=== PATIENT | female | born 1985 ===

== ENCOUNTER 2022-09-22 10:11 | Outpatient (REF) | payer OTHER, SELFPAY ==
[2022-09-22 10:21] LABS: MANUAL DIFF FLAG NO
[2022-09-22 10:56] LABS: Basophils Absolute Auto 0.1 X10*3/uL (0.0-0.2); Basophils Percent Auto 0.6 % (0-2); Eosinophils Absolute Auto 0.2 X10*3/uL (0.0-0.4); Eosinophils Percent Auto 2.3 % (0-4); Hematocrit 41.6 % (37.0-47.0); Imm Gran Abs Auto 0.03 X10*3/uL (0.00-0.03); Imm Gran Pct Auto 0.3 % (0.0-0.4); Lymphocytes Absolute Auto 2.1 X10*3/uL (1.2-4.9); Lymphocytes Percent Auto 21.3 % (20-40); Mean Corpuscular HGB Conc 31.3 g/dl (31.0-35.0); Mean Corpuscular Hemoglobin 27.2 pg (27.0-33.0); Mean Platelet Volume 10.3 fL (9.4-12.3); Monocytes Absolute Auto 0.6 X10*3/uL (0.1-1.2); Monocytes Percent Auto 6.4 % (2-11); Neutrophils Absolute Auto 6.7 x10*3/uL (2.0-8.3); Neutrophils Percent Auto 69.1 % (45-73); Platelet Count 274 X10*3/uL (160-400); Red Blood Count 4.78 X10*6/uL (4.20-5.50); Red Cell Distribution Width 13.9 % (11.0-16.0); White Blood Count 9.6 X10*3/uL (4.8-10.8)
[2022-09-22 12:35] LABS: Alanine Aminotransferase 34 U/L (0-31); Albumin Level 3.9 g/dL (3.5-5.0); Alkaline Phosphatase 65 U/L (39-117); Anion Gap 13 (12-20); Aspartate Amino Transferase 19 U/L (5-31); Bilirubin Total 0.7 mg/dL (0.0-1.0); Blood Urea Nitrogen 7 mg/dL (9-16); Calcium 8.9 mg/dL (8.4-10.2); Carbon Dioxide 24 mmol/L (22-29); Chloride 106 mmol/L (96-108); Cholesterol 193 mg/dL; Estimated Glomerular Filt Rate > 60; Glucose Random 110 mg/dL (60-115); HDL Cholesterol 48 mg/dL; LDL Cholesterol Calculated 126 mg/dl; Potassium 4.4 mmol/L (3.3-5.1); Sodium 139 mmol/L (135-145); TSH reflex Free T4 1.19 uIU/mL (0.32-4.0); Total Protein 6.6 g/dL (6.5-8.0); Triglycerides 95 mg/dL; Vitamin D 25-OH Total 33.9 ng/mL (>30)
== END 2022-09-22 10:12 | disposition home or self-care (01) ==
LOC: HO.LAB 10:11
PROVIDERS: PCP Nurse Practitioner Family; Visit Provider Nurse Practitioner Family
DX: Z13.0 Encounter for screening for diseases of the blood and blood-forming organs and certain disorders involving the immune mechanism (principal); Z13.1 Encounter for screening for diabetes mellitus; Z13.220 Encounter for screening for lipoid disorders; Z13.29 Encounter for screening for other suspected endocrine disorder; Z13.21 Encounter for screening for nutritional disorder
CPT/HCPCS: 36415; 80053; 80061; 82306; 84443; 85025

== ENCOUNTER 2022-10-08 07:44 | Outpatient (REF) | payer OTHER, SELFPAY ==
--- NOTE | ~2022-10-08 | CT_ITS ---
EXAMINATION: CT ANGIOGRAM HEAD CLINICAL INFORMATION: History of ischemic heart disease and aneurysms, headaches COMPARISON: None. TECHNIQUE: Test bolus sequences followed by intravenous administration 75 mL of Omnipaque 350. Helical imaging was performed in the axial plane from the skull base to the skull vertex. Delayed postcontrast imaging of the head was also performed. The data was processed at the pulmonary function technologist's workstation for generation of MIP sequences. Three-dimensional volume rendered reformatted images were also generated at an offline 3-D workstation. This CT examination was performed using dose optimization techniques as appropriate, variously including the following: *Automated exposure control *Adjustment of mA and/or kV according to patient size (this includes techniques or standardized protocols for targeted exams where dose is matched to indication/reason for exam; i.e. extremities or head) *Use of iterative reconstruction technique DLP: 3078 mGy-cm. FINDINGS: CT HEAD: The ventricles and sulci are normal in size and configuration without significant volume loss or hydrocephalus. There is no abnormal attenuation within the brain parenchyma. No territorial loss of ochoa-white differentiation. No acute intracranial hemorrhage or extra-axial fluid collection. No mass lesion, significant mass effect, or herniation pattern. No pathologic intra-axial enhancement or regional oligemia. The orbits are grossly normal. Paranasal sinuses and mastoid air cells are well aerated. Osseous structures are intact. Small volume adenoidal tonsillar tissue. Accessory parotid glandular tissue extends superficial to the masseter muscles bilaterally. CTA HEAD: Technically limited evaluation of the intracranial vasculature related to suboptimal contrast bolus with apparent diffuse luminal irregularity probably on a technical basis. No proximal large vessel occlusion or hemodynamically significant stenosis. Query 1.5 mm infundibular origin versus small aneurysm at the the left frontopolar artery origin arising from the distal left A2 ROSA. Timing of the contrast bolus allows assessment of the major dural venous sinuses, which all opacify normally. Asymmetric prominence and enhancement of the left angular vein with draining diploic vein traversing the right frontal calvarium emptying into the superior sagittal sinus. There may be an arterial feeder from the left superior temporal artery versus prominent superior temporal vein. Arteriovenous shunting lesion is not excluded and further evaluation with pqsq-gg-gjignh and contrast-enhanced head and neck MRA is recommended. CT/CT angio head IMPRESSION: 1. No acute intracranial abnormality. 2. Technically limited evaluation of the intracranial vasculature related to suboptimal contrast bolus with apparent diffuse luminal irregularity probably on a technical basis. 3. Query 1.5 mm infundibular origin versus small aneurysm at the the left frontopolar artery origin arising from the distal left A2 ROSA. 4. Asymmetric prominence and enhancement of the left angular vein with draining diploic vein emptying into the superior sagittal sinus. There may be an arterial feeder from the left superior temporal artery versus prominent superior temporal vein. Arteriovenous shunting lesion is not excluded and could be further assessed with [id number]-[id number] and contrast-enhanced head and neck MRA.
[2022-10-08] MEDS: iohexoL 350 MG/ML 75 ML INFUS..BTL IV (08:42)
== END 2022-10-08 07:45 | disposition home or self-care (01) ==
LOC: HO.CT 07:44
PROVIDERS: PCP Nurse Practitioner Family; Visit Provider Nurse Practitioner Family
DX: I67.1 Cerebral aneurysm, nonruptured (principal); Z82.49 Family history of ischemic heart disease and other diseases of the circulatory system
CPT/HCPCS: 70496; Q9967

== ENCOUNTER 2022-11-18 16:25 | Outpatient (REF) | payer OTHER, SELFPAY ==
--- NOTE | ~2022-11-18 | MR_ITS ---
EXAMINATION MRA HEAD WITHOUT AND WITH CONTRAST MRA NECK WITH AND WITHOUT CONTRAST CLINICAL INFORMATION: Family history ischemic heart disease. Query 1.5 mm infundibulum origin versus small aneurysm at the left frontopolar artery, and asymmetric prominence of the left angular vein COMPARISON: CTA of the head 10/08/2022. TECHNIQUE: 3D pvdy-ew-pfelzg MR angiography was performed through the brain and axial source images were reviewed along with rotating MIPs. Subsequently, 2-D pvif-qr-reykkj and bolus IV enhanced MR angiography was performed through the cervicocerebral vasculature. The degree of stenosis is based off NASCET criteria. Source images were reviewed along with MIPs. Angled MIPs and volumetric reconstructions were independently generated and archived by the 3D laboratory. A total of 10 ml of intravenous Gadavist was utilized for the examination. FINDINGS: MRA NECK: There is a classic configuration of the aortic arch. The proximal arch vessels are nonstenotic. The left vertebral artery is dominant and both vertebral arteries are widely patent from their ostia until they garrett the dura. The common and internal carotid arteries are normal in course and caliber. MRA HEAD: There is mild asymmetric prominence of the angular vein on the left, but there is no evidence of arterialized flow, and this may be consistent with aberrant venous drainage. The intracranial internal carotid arteries and their bifurcations appear normal. The equivocal fullness on the CTA at the origin of the left frontopolar artery most is most likely consistent with a small infundibulum (image 160/168, sequence 3 and image 149/168, sequence 9). No definite discrete aneurysm is demonstrated. The middle and anterior cerebral arteries bilaterally demonstrate normal caliber with no evidence of focal stenosis, aneurysm or vascular malformation. There is normal arborization of the middle cerebral artery branches. The anterior communicating artery is normal. In the posterior circulation, the left vertebral artery is dominant. The vertebral arteries intradurally have normal caliber. The basilar artery appears normal. The posterior cerebral arteries have normal caliber. MR/MR angio head wo/w con IMPRESSION: 1. The study demonstrates a prominent angular vein on the left, but there is no evidence of arterialization, and this is most consistent with asymmetric, aberrant venous drainage. 2. No definite discrete aneurysm is seen in the left frontopolar branches of the left anterior cerebral artery, and the findings are most consistent with a small infundibulum. 3. No focal stenoses, aneurysms or vascular malformations are demonstrated elsewhere.
--- NOTE | ~2022-11-18 | MR_ITS ---
EXAMINATION MRA HEAD WITHOUT AND WITH CONTRAST MRA NECK WITH AND WITHOUT CONTRAST CLINICAL INFORMATION: Family history ischemic heart disease. Query 1.5 mm infundibulum origin versus small aneurysm at the left frontopolar artery, and asymmetric prominence of the left angular vein COMPARISON: CTA of the head 10/08/2022. TECHNIQUE: 3D jqjl-dy-cptnku MR angiography was performed through the brain and axial source images were reviewed along with rotating MIPs. Subsequently, 2-D irjl-pq-sgnrob and bolus IV enhanced MR angiography was performed through the cervicocerebral vasculature. The degree of stenosis is based off NASCET criteria. Source images were reviewed along with MIPs. Angled MIPs and volumetric reconstructions were independently generated and archived by the 3D laboratory. A total of 10 ml of intravenous Gadavist was utilized for the examination. FINDINGS: MRA NECK: There is a classic configuration of the aortic arch. The proximal arch vessels are nonstenotic. The left vertebral artery is dominant and both vertebral arteries are widely patent from their ostia until they garrett the dura. The common and internal carotid arteries are normal in course and caliber. MRA HEAD: There is mild asymmetric prominence of the angular vein on the left, but there is no evidence of arterialized flow, and this may be consistent with aberrant venous drainage. The intracranial internal carotid arteries and their bifurcations appear normal. The equivocal fullness on the CTA at the origin of the left frontopolar artery most is most likely consistent with a small infundibulum (image 160/168, sequence 3 and image 149/168, sequence 9). No definite discrete aneurysm is demonstrated. The middle and anterior cerebral arteries bilaterally demonstrate normal caliber with no evidence of focal stenosis, aneurysm or vascular malformation. There is normal arborization of the middle cerebral artery branches. The anterior communicating artery is normal. In the posterior circulation, the left vertebral artery is dominant. The vertebral arteries intradurally have normal caliber. The basilar artery appears normal. The posterior cerebral arteries have normal caliber. MR/MR angio neck wo/w con IMPRESSION: 1. The study demonstrates a prominent angular vein on the left, but there is no evidence of arterialization, and this is most consistent with asymmetric, aberrant venous drainage. 2. No definite discrete aneurysm is seen in the left frontopolar branches of the left anterior cerebral artery, and the findings are most consistent with a small infundibulum. 3. No focal stenoses, aneurysms or vascular malformations are demonstrated elsewhere.
== END 2022-11-18 16:26 | disposition home or self-care (01) ==
LOC: HO.MRI 16:25
PROVIDERS: PCP Nurse Practitioner Family; Visit Provider Nurse Practitioner Family
DX: R90.89 Other abnormal findings on diagnostic imaging of central nervous system (principal); Z82.49 Family history of ischemic heart disease and other diseases of the circulatory system
CPT/HCPCS: 70546; 70549; A9585

== ENCOUNTER 2023-01-04 08:27 | Outpatient (AMB) | payer OTHER, SELFPAY ==
[2023-01-04 08:31] VITALS: BP 114/62; PULSE 68; O2SAT 99; BMI 45.8
--- NOTE | 2023-01-04 08:31 | A.OFFPC_ITS ---
Vital Signs 01/04/23 08:31 Height 5 ft 9 in Weight 310 lb BMI 45.8 BP 114/62 Blood Pressure Location Lt brachial Position Sitting Pulse 68 Pulse Source Pulse Oximeter Temp Source Skin Pulse Oximetry (%) 99 Oxygen Delivery Method Room Air Intake Visit Reasons: 2 month f/u Intake Note: Patient is here to follow up on 2 months. Security System Administrator Required: No Allergies No Known Allergies Allergy (Verified 01/04/23 08:32) Tobacco use date assessed: 01/04/23 Dental Screening Dental Screen Date: 01/04/23 Did you have a dental visit in the last 12 months?: Yes Did you have a dental problem in the last 6 months where you did not have access to dental care?: No Was dental information given to patient?: Patient has dentist HPI HPI Comments History of Present Illness Details 37-year-old female past medical history significant for PCOS and obesity.? Patient presents today for physical exam.? Patient had head CT that showed:?Query 1.5 mm infundibular origin versus small aneurysm at the the left frontopolar artery origin arising from the distal left A2 ROSA.? Head and neck MRA recommended completed on 11/18/2022, MR/MR angio head wo/w con IMPRESSION: 1. The study demonstrates a prominent angular vein on the left, but there is no evidence of arterialization, and this is most consistent with asymmetric, aberrant venous drainage. ? 2. No definite discrete aneurysm is seen in the left frontopolar branches of the left anterior cerebral artery, and the findings are most consistent with a small infundibulum. ? 3. No focal stenoses, aneurysms or vascular malformations are demonstrated elsewhere. Patient was Sports was seen by [facility] neuro surgery and states she has to undergo a CT angiogram for further evaluation. Patient reports headaches have resolved since discontinuing her control. Patient also reports lumbar back pain ongoing for years since 2020. Denies any symptoms of radiculopathy and denies any bowel or bladder issues. Takes Tylenol with relief of pain Referral entered for physical therapy. Also reports feels like she has worsening PMS symptoms and also reports a miscarriage couple weeks ago. Patient advised to follow-up with her OBGYN. Patient states she has upcoming appointment for this. [facility] Medical History (Updated 11/09/22 @ 09:23 by ORLY Dowd) Family history of cerebral aneurysm Gestational diabetes Hidradenitis suppurativa Morbid obesity with BMI of 45.0-49.9, adult PCOS (polycystic ovarian syndrome) Surgical History Mclean teeth removed Family History Mother Diabetes Father Gastritis Brother Cavernous malformation Social History Household Members: Family Housing: House Alcohol intake: never Patient Tobacco Use Status: Former Tobacco user Tobacco use type: Cigarette Years Smoked: smoked 5 years, 1 pack a week. quit over 10 years ago e-Cigarette/Vaping Use: Never Used Substance Use Type: Marijuana service: No Current occupational status: unemployed Cognitive needs: No Hearing needs: No Vision needs: No Questionnaire Thrive Questionnaire Date Thrive assessed: 09/09/22 AUDIT C Alcohol Use Questionnaire (AUDIT-C) 1. How often do you have a drink containing alcohol?: Never 3. How often do you have six or more drinks on one occasion?: Never Total Score: 0 IRAM-7 AMB Questionnaire IRAM-7 Date IRAM - 7 assessed: 09/09/22 Source: Developed by Drs. Tristin Pickering, Qian French, Tal Tillman and colleagues, with an educational martínez from [employer]. Review of Systems Const Denies chills, Denies fatigue, Denies fever(s) and Denies poor appetite Eyes Denies no additional complaints ENT Reports Normal hearing present Card Denies chest pain, Denies syncope, Denies rapid heart rate and Denies dyspnea Resp Denies cough and Denies dyspnea GI Denies change in stool character, Denies constipation, Denies diarrhea, Denies nausea and Denies vomiting Denies urinary frequency, Denies dysuria and Denies urinary urgency Musc Reports back pain (low back pain ) Neuro Reports Normal hearing present, Denies confusion and Denies syncope Psych Denies confusion Endo Denies fatigue Physical exam (Primary Care) Vital Signs: Last Vital Signs Pulse 68 01/04/23 08:31 BP 114/62 01/04/23 08:31 Pulse Ox 99 01/04/23 08:31 Oxygen Delivery Method Room Air 01/04/23 08:31 BMI result Body Mass Index 45.8 Tobacco/Smoking Status: Tobacco use Status Tobacco use date assessed 01/04/23 01/04/23 08:36 Patient Tobacco Use Status Former Tobacco user 01/04/23 08:36 Tobacco use type Cigarette 01/04/23 08:36 e-Cigarette/Vaping Use Never Used 01/04/23 08:36 Thrive Assessment: Date of Thrive Assessment Date Thrive assessed 09/09/22 01/04/23 08:36 Const General: No confusion Orientation/consciousness: No confusion HENMT Head: Yes normocephalic and Yes atraumatic Eyes Conjunctivae: conjunctivae normal Chest Chest palpation & inspection: normal inspection of the chest Resp Effort & Inspection: normal respiratory effort Auscultation: clear to auscultation bilaterally, no crackles, no rhonchi and no wheezes Cardio Rate: regular rate Rhythm: regular rhythm Heart sounds: S1 normal heart sound present and S2 normal heart sound present GI Inspection: Yes normal to inspection Back/Spine/Pelvis Cervical Spine: normal cervical lordosis and cervical ROM normal Thoracic/Lumbar Spine: thoracic and lumbar spine normal to inspection, pain with thoraco-lumbar ROM, paraspinal muscle tenderness, lumbar spinal tenderness and straight leg raise positive (bilaterally) Pelvis: no sciatic notch tenderness Neuro General: No confusion Cranial nerves: Yes Normal hearing present Extrem General: No edema Assessment and Plan Assessment & Plan (1) Lumbar back pain: Code(s): M54.50 - Low back pain, unspecified Plan: Continue to take Tylenol as needed for pain. Referral entered for physical therapy. (2) Family history of cerebral aneurysm: Code(s): Z82.49 - Family history of ischemic heart disease and other diseases of the circulatory system Plan: Continue to follow with Neurosurgery complete CT angiogram as recommended by [facility]. (3) Morbid obesity with BMI of 45.0-49.9, adult: Code(s): E66.01 - Morbid (severe) obesity due to excess calories; Z68.42 - Body mass index [BMI] 45.0-49.9, adult Plan: New referral entered for weight management. Plan Follow-up in 1 year for physical exam or as needed. Orders: Orders PT Evaluation and Treatment Today M54.50 - Low back pain, unspecified Coding Level of Care Code Est Pt Level 3 (26396) Diagnoses Lumbar back pain M54.50 Family history of cerebral aneurysm Z82.49 Morbid obesity with BMI of 45.0-49.9, adult E66.01; Z68.42
== END 2023-01-04 09:05 | disposition home or self-care (01) ==
PROVIDERS: PCP Nurse Practitioner Family; Visit Provider Nurse Practitioner Family
DX: M54.50 Low back pain, unspecified (principal); Z82.49 Family history of ischemic heart disease and other diseases of the circulatory system; E66.01 Morbid (severe) obesity due to excess calories; Z68.42 Body mass index [BMI] 45.0-49.9, adult
CPT/HCPCS: 99213

== ENCOUNTER 2023-02-21 08:00 | Outpatient (RCR) | payer OTHER, SELFPAY ==
--- NOTE | 2023-02-15 12:28 | MHC.PT.EP ---
[facility] [place] [address] [place] [address] Radha Langford [address] [phone] F: [phone] F: [phone] F: [phone] F: [phone] Physical Therapy Plan of Care Date of Evaluation: 02/15/23 Date of Surgery: Diagnosis: PT eval and treat, M54.50 Low back pain, unspecified signed by Nicolasa Chatterjee date of script 01/05/23 Assessment: Pt is a RHD 37 y/o female with PMH significant for PCOS and obesity, referred to PT for treatment of low back pain following worsening onset of sx following of baby in Jul 2021 as well as history of 100lbs weight loss 2018. Pt exhibits global deconditioning, impaired core strength, decreased hip abd/extensor strength. Pt exhibits positive lumbar instability, L quad tightness, and impaired L hip IR, and poor hip IR AROM/PROM. Pt would benefit from attending skilled PT services at a frequency of 2x/week x 4 weeks to address impairments, implement HEP, and improve functional mobility to resume PLOF. Frequency and Duration: The patient will be seen 2x/week x 4 weeks Short Term Goals: 1. Initiate HEP/self care/body cleaner program. 2. Increase strength of core stabilizers. 3. Centralize presence of L LE parathesia sx. 4. Strengthen L hip abd to 4/5. 5. Strengthen L hip ext to 4/5. Detention Goals: 1. I HEP. 2. Negative lumbar instability. 3. Perform plank with no lumbar sx >2/10. 4. Strengthen hip abd and hip ext 5/5 B. 5. Lumbar sx <2/10 in regard to ADLS/IADLS. Treatment Plan: Modalities to reduce pain, spasms and effusion. Manual therapy to restore motion and function. Therapeutic exercise to improve strength and flexibility. Neuromuscular re-education for posture and balance. Therapeutic activities to return to functional activities of daily living. Electronically signed by: Mariangel Haley, PT, DPT Please sign and return to therapist. Thank you for your referral.
== END 2023-07-12 13:08 | disposition home or self-care (01) ==
LOC: HO.PTWFD 08:00
PROVIDERS: PCP Internal Medicine; Visit Provider Nurse Practitioner Family
DX: M54.50 Low back pain, unspecified (principal)
CPT/HCPCS: 97110; 97161; 97530; 97535